=== PATIENT | male | born 1965 | race Caucasian/White ===

== ENCOUNTER 2016-06-24 19:51 | Emergency (ER) | payer OTHER ==
[~2016-06-24] VITALS: Ht 180.3 cm; Wt 116.3 kg
[~2016-06-24 19:51] MED LIST: B COMPLEX WITH1 EACH PO; BEE POLLEN550 MG PO; DIOVAN HCT 11 TABLE1 PO; FLEXERIL5 MG PO; PEPCID20 MG PO; PRILOSEC20 MG PO; PROSTATE HEALT1 EAC1 PO
[2016-06-24] MEDS ORDERED: FLEXERIL10 MG PO (21:21)
[2016-06-24] MEDS ORDERED: MOTRIN800 MG PO (21:21)
[2016-06-25 00:05] VITALS: BP 125/78
== END 2016-06-25 00:31 | disposition home or self-care (01) ==
LOC: EME 19:51
DX: S13.4XXA Sprain of ligaments of cervical spine, initial encounter (principal); V49.40XA Driver injured in collision with unspecified motor vehicles in traffic accident, initial encounter; I10 Essential (primary) hypertension
CPT/HCPCS: 72050; 99281; 99284